=== PATIENT | female | born 1975 | race American Indian/Alaskan Native ===

== ENCOUNTER 2016-05-14 07:39 | Emergency (ER) | payer BC, OTHER ==
[2016-05-14 07:39] VITALS: BMI 27.4
[2016-05-14 07:56] VITALS: TEMP 97.4
--- NOTE | 2016-05-14 07:59 | ED PDOC ---
Arrival/HPI - General Time Seen by Provider: 05/14/16 07:45 Historian: Patient - History of Present Illness Narrative History of Present Illness (Text): 05/14/16 07:45 Kacie Palma is a 41 year old female, whose past medical history includes chest pain, who presents to the Emergency department complaining of difficulty breathing with associated right-sided chest and back pain for four days. Patient states that feels like she "can't catch her breath." Patient says she went to an Urgent Care facility two days ago but her symptoms are still constant. Patient denies any colds, cough, fevers, nausea, vomiting, diarrhea, urinary symptoms, or any other complaints at this time. PMD: Dr. Tineo Time/Duration: < week (4 days) Symptom Onset: Gradual Symptom Course: Unchanged Severity Level: Mild Activities at Onset: Light Context: Home Associated Symptoms (Text): 05/14/16 08:46 Several day history of chest pain and shortness of breath. Patient has had similar episodes in the past. Multiple CT scans of the chest. She's had a biopsy also. She reports that her high school band director was entertaining the diagnosis of sarcoidosis, but she was never given that diagnosis. No cough congestion or URI. No fever or chills. No injury or trauma. The pain is made worse by breathing and palpation. She reports that steroids have helped the pain in the past. Past Medical History - Provider Review Nursing Documentation Reviewed: Yes - Past History Past History: No Previous - Infectious Disease Hx of Infectious Diseases: None - Tetanus Immunization Tetanus Immunization: Up to Date - Past Medical History Past Medical History: No Previous - Psychiatric Hx Substance Use: No - Past Surgical History Past Surgical History: No Previous - Surgical History Hx Section: Yes - Suicidal Assessment Feels Threatened In Home Enviroment: No Family/Social History - Physician Review Nursing Documentation Reviewed: Yes Family/Social History: No Known Family HX Smoking Status: Never Smoked Hx Alcohol Use: No Hx Substance Use: No Hx Substance Use Treatment: No Allergies/Home Meds Allergies/Adverse Reactions: Allergies iodine Adverse Reaction (Uncoded 05/14/16 07:52) RASH shellfish Adverse Reaction (Uncoded 05/14/16 07:53) RASH Home Medications: Home Meds Medication Instructions Recorded Confirmed B Complex with Vitamin C [Shantal-Bee 500 mg DAILY 05/14/16 05/14/16 with C] Review of Systems - Physician Review All systems were reviewed & negative as marked: Yes - Review of Systems Constitutional: absent: Fevers, Night Sweats Eyes: absent: Vision Changes ENT: absent: Hearing Changes Respiratory: SOB. absent: Cough, Sputum, Wheezing Cardiovascular: Chest Pain. absent: Palpitations, Syncope Gastrointestinal: absent: Abdominal Pain, Constipation, Diarrhea, Nausea, Vomiting Genitourinary Female: absent: Dysuria, Frequency, Hematuria, Urine Output Changes Musculoskeletal: Back Pain. absent: Neck Pain, Joint Swelling Skin: absent: Rash Neurological: absent: Headache, Dizziness Endocrine: absent: Diaphoresis Hemo/Lymphatic: absent: Easy Bleeding Psychiatric: absent: Depression Physical Exam Vital Signs Reviewed: Yes Vital Signs Temp Pulse Pulse Resp BP BP Pulse Ox 05/14/16 08:10 97.4 F L 66 76 18 109/76 109/76 100 05/14/16 07:39 97.4 F L 86 19 109/76 100 Temperature: Afebrile Blood Pressure: Normal Pulse: Regular Respiratory Rate: Normal Appearance: Positive for: Well-Appearing, Non-Toxic, Comfortable Pain Distress: None Mental Status: Positive for: Alert and Oriented X 3 - Systems Exam Head: Present: Atraumatic, Normocephalic Pupils: Present: PERRL Extroacular Muscles: Present: EOMI Conjunctiva: Present: Normal Mouth: Present: Moist Mucous Membranes Pharnyx: No: ERYTHEMA, EXUDATE, TONSILS ENLARGED Neck: Present: Normal Range of Motion Respiratory/Chest: Present: Clear to Auscultation, Good Air Exchange, Respiratory Distress, Accessory Muscle Use, Tender to Palpation, Other (Right- sided chest tenderness). No: Decreased Breath Sounds Cardiovascular: Present: Regular Rate and Rhythm, Normal S1, S2. No: Murmurs Abdomen: Present: Normal Bowel Sounds. No: Tenderness, Distention, Peritoneal Signs, Rebound, Guarding Back: Present: Normal Inspection Upper Extremity: Present: Normal Inspection. No: Cyanosis, Edema Lower Extremity: Present: Normal Inspection. No: Edema Neurological: Present: GCS=15, CN II-XII Intact, Speech Normal, Motor Func Grossly Intact Skin: Present: Warm, Dry, Normal Color. No: Rashes Psychiatric: Present: Alert, Oriented x 3, Normal Insight, Normal Concentration Medical Decision Making ED Course and Treatment: 05/14/16 07:45 Impression: 41 year old female complaining of difficulty breathing with associated right- sided chest and back pain for four days Plan: -- EKG -- Toradol -- Reassess and disposition Progress Notes: 05/14/16 08:48 EKG shows normal sinus rhythm rate approximately 85 with nonspecific T-wave changes laterally with no old EKGs for comparison 05/14/16 09:14 Symptoms improved. - Lab Interpretations Lab Results: 05/14/16 08:13 05/14/16 08:13 Lab Results 05/14/16 08:13: WBC 5.8, RBC 4.58, Hgb 11.4 L, Hct 35.6 L, MCV 77.7 L, MCH 24.9 L, MCHC 32.0, RDW 14.9 H, Plt Count 653 H, MPV 9.4, Gran % 54.2, Lymph % (Auto) 34.7, [place] % (Auto) 7.5 H, Eos % (Auto) 2.4, Baso % (Auto) 1.2, Gran # 3.13, Lymph # 2.0, [place] # 0.4, Eos # 0.1, Baso # 0.07, D-Dimer, Quantitative 0.48, Sodium 141, Potassium 3.8, Chloride 102, Carbon Dioxide 28, Anion Gap 15, BUN 11 , Creatinine 0.9, Est GFR ( Amer) > 60, Est GFR (Non-Af Amer) > 60, Random Glucose 73, Calcium 9.5, Magnesium 2.0, Total Bilirubin 0.5, AST 23, ALT 27, Alkaline Phosphatase 69, Lactate Dehydrogenase 398, Total Creatine Kinase 65 , Troponin I < 0.01, Total Protein 8.6 H, Albumin 4.4, Globulin 4.2, Albumin/ Globulin Ratio 1.0 L, Urine Color Yellow, Urine Appearance Clear, Urine pH 6.0, Ur Specific [place] 1.020, Urine Protein Negative, Urine Glucose (UA) Negative, Urine Ketones Negative, Urine Blood Negative, Urine Nitrate Negative, Urine Bilirubin Negative, Urine Urobilinogen 0.2, Ur Leukocyte Esterase Negative - RAD Interpretation Radiology Orders: 05/14/16 07:53 CHEST PORTABLE [RAD] Stat Chest one view shows no infiltrate or effusion cardiomegaly or pneumothorax Library Science Professor: ED Physician - Medication Orders Current Medication Orders: Discontinued Medications Ketorolac Tromethamine (Toradol) 30 mg IVP ONCE ONE Stop: 05/14/16 07:54 Last Admin: 05/14/16 08:31 Dose: 30 MG IVP Administration Document 05/14/16 08:31 HATTIE (Rec: 05/14/16 08:32 [id number]) Charges for Administration # of IVP Administrations 1 - Scribe Statement The provider has reviewed the documentation as recorded by the Scribe Cathryn Saldivar Provider Scribe Attestation: All medical record entries made by the Scribe were at my direction and personally dictated by me. I have reviewed the chart and agree that the record accurately reflects my personal performance of the history, physical exam, medical decision making, and the department course for this patient. I have also personally directed, reviewed, and agree with the discharge instructions and disposition. Disposition/Present on Arrival - Present on Arrival Any Indicators Present on Arrival: No History of DVT/PE: No History of Uncontrolled Diabetes: No Urinary Catheter: No History of Decub. Ulcer: No History Surgical Site Infection Following: None - Disposition Have Diagnosis and Disposition been Completed?: Yes Diagnosis: Chest wall pain, Pleurisy Disposition: HOME/ ROUTINE Disposition Time: 09:15 Patient Plan: Discharge Condition: IMPROVED Discharge Instructions (ExitCare): Chest Pain (ED) Additional Instructions: Rest. Follow-up with PMD. Follow up in ER as needed. Prescriptions: Naproxen [Naprosyn] 500 mg PO BID #14 tab
[2016-05-14 08:14] LABS: ADD MANUAL DIFF? NO
[2016-05-14 08:16] VITALS: RESP 18
[2016-05-14 08:24] LABS: BASO # 0.07 K/mm3 (0.0-2.0); BASO % 1.2 % (0.0-3.0); EOS # 0.1 (0.0-0.7); EOS % 2.4 % (1.5-5.0); GRAN # 3.13 (1.4-6.5); GRAN % 54.2 % (50.0-68.0); HEMATOCRIT 35.6 % (36.0-48.0); LYMPH % 34.7 % (22.0-35.0); MEAN CELL VOLUME 77.7 fL (80.0-105.0); MEAN CORPUSCULAR HEMOGLOBIN 24.9 pg (25.0-35.0); MEAN PLATELET VOLUME 9.4 fl (7.0-11.0); MONO # 0.4 (0.1-0.6); MONO % 7.5 % (1.0-6.0); PLATELET COUNT 653 10^3/uL (120.0-450.0); RED CELL DISTRIBUTION WIDTH 14.9 % (11.5-14.5); WHITE BLOOD COUNT 5.8 10^3/ul (4.5-11.0)
[2016-05-14 08:30] LABS: ALKALINE PHOSPHATASE 69 U/L (38-133); ALT/SGPT 27 U/L (7-56); AST/SGOT 23 U/L (15-39); BILIRUBIN,TOTAL 0.5 mg/dL (0.2-1.3); BLOOD UREA NITROGEN 11 mg/dL (7-21); CALCIUM 9.5 mg/dL (8.4-10.5); CARBON DIOXIDE 28 mmol/L (21-33); CHLORIDE 102 mmol/L (98-107); GFR AFRICAN-AMERICAN > 60; GLUCOSE,RANDOM 73 mg/dL (70-110); POTASSIUM 3.8 mmol/L (3.6-5.0); SODIUM 141 mmol/L (132-148); TOTAL PROTEIN 8.6 g/dL (5.8-8.3)
[2016-05-14 08:31] LABS: URINE BILIRUBIN NEGATIVE (NEGATIVE); URINE BLOOD NEGATIVE (NEGATIVE); URINE GLUCOSE (UA) NEGATIVE (NEGATIVE); URINE KETONE NEGATIVE (NEGATIVE); URINE LEUKOCYTE ESTERASE NEGATIVE Leu/uL (NEGATIVE); URINE PROTEIN NEGATIVE mg/dL (<30 mg/dL); URINE UROBILINOGEN 0.2 E.U./dL (<1 E.U./dL)
[2016-05-14 08:32] LABS: URINE APPEARANCE CLEAR (CLEAR); URINE COLOR YELLOW (YELLOW)
--- NOTE | 2016-05-14 08:45 | RAD ---
HISTORY: cp COMPARISON: 09/06/2012 FINDINGS: LUNGS: No active pulmonary disease. PLEURA: No significant pleural effusion identified, no pneumothorax apparent. CARDIOVASCULAR: Normal. OSSEOUS STRUCTURES: No significant abnormalities. VISUALIZED UPPER ABDOMEN: Normal. OTHER FINDINGS: None. IMPRESSION: No active disease.
[2016-05-14 08:49] LABS: TROPONIN I < 0.01 ng/mL
[2016-05-14 09:17] VITALS: BP 103/78; PULSE 78; O2SAT 82
--- NOTE | 2016-05-14 14:52 | CARD ---
APPROVED REPORT EKG Measurement Heart [id number] <Conclusion> Normal sinus rhythm T wave abnormality, consider anterior ischemia Abnormal ECG
== END 2016-05-14 09:17 | disposition home or self-care (01) ==
LOC: ED 07:39
DX: R07.89 Other chest pain (principal)
CPT/HCPCS: 71010; 80053; 81003; 82550; 83615; 83735; 84484; 85025; 85378; 93005; 96374; 99283; J1885

== ENCOUNTER 2016-05-20 14:37 | Observation (INO) | payer BC, OTHER ==
[2016-05-20 14:37] VITALS: BMI 27.4
--- NOTE | 2016-05-20 14:41 | ED PDOC ---
Arrival/HPI - General Time Seen by Provider: 05/20/16 14:39 Historian: Patient - History of Present Illness Narrative History of Present Illness (Text): 05/20/16 14:40 41 y/o female, pmh including pneumonia/pneumonitis?, alelrgic to shellfish, c/o rt. sided lateral chest wall pain x 2 weeks. Pt. stated that she has been having rt. lateral chest wall pain for the past 2 weeks, on and off, feels like her previous episode of pneumonia/pneumonitis which was only potato picker by the CT chest and not chest xray. Pt. stated that she has no coughing or fever, does have epigastric pain, no night sweat, no dizziness, no palpitation, no numbness or tingling, non-radiating, saw her own pmd Dr. Johnson on this past monday which she started on the zithromax but has not gotten better. Pt. has no weight loss, no abdominal pain, no other medical or psychological complaints. Past Medical History - Provider Review Nursing Documentation Reviewed: Yes - Past History Past History: No Previous - Infectious Disease Hx of Infectious Diseases: None - Tetanus Immunization Tetanus Immunization: Up to Date - Past Medical History Past Medical History: No Previous - Psychiatric Hx Substance Use: No - Past Surgical History Past Surgical History: No Previous - Surgical History Hx Section: Yes - Anesthesia Hx Anesthesia: Yes Hx Anesthesia Reactions: No Hx Malignant Hyperthermia: No - Suicidal Assessment Feels Threatened In Home Enviroment: No Family/Social History - Physician Review Nursing Documentation Reviewed: Yes Family/Social History: Unknown Family HX Smoking Status: Never Smoked Hx Alcohol Use: No Hx Substance Use: No Hx Substance Use Treatment: No Allergies/Home Meds Allergies/Adverse Reactions: Allergies iodine Adverse Reaction (Uncoded 05/20/16 14:51) RASH shellfish Adverse Reaction (Uncoded 05/20/16 14:51) RASH Home Medications: Home Meds Medication Instructions Recorded Confirmed B Complex with Vitamin C [Shantal-Bee 500 mg DAILY 05/14/16 05/14/16 with C] Review of Systems - Review of Systems Constitutional: absent: Fatigue, Fevers Eyes: absent: Vision Changes ENT: absent: Hearing Changes Respiratory: absent: Cough, Sputum Cardiovascular: absent: Chest Pain, Palpitations, Edema Gastrointestinal: absent: Abdominal Pain, Diarrhea, Nausea, Vomiting Musculoskeletal: Myalgias. absent: Arthralgias, Back Pain, Neck Pain, Joint Swelling Neurological: absent: Headache, Dizziness, Focal Weakness, Gait Changes, Speech Changes, Facial Droop, Disequilibrium, Seizure Endocrine: absent: Diaphoresis Physical Exam Vital Signs Reviewed: Yes Vital Signs Temp Pulse Resp BP Pulse Ox 05/20/16 19:52 97.8 F 79 16 119/76 98 05/20/16 14:50 97.9 F 89 18 126/70 100 Temperature: Afebrile Blood Pressure: Normal Pulse: Regular Respiratory Rate: Normal Appearance: Positive for: Well-Appearing, Non-Toxic, Comfortable Pain Distress: Moderate Mental Status: Positive for: Alert and Oriented X 3 - Systems Exam Head: Present: Atraumatic, Normocephalic Pupils: Present: PERRL Extroacular Muscles: Present: EOMI Conjunctiva: Present: Normal Mouth: Present: Moist Mucous Membranes Neck: Present: Normal Range of Motion Respiratory/Chest: Present: Clear to Auscultation, Good Air Exchange, Rales (RLL ), Rhonchi (RLL). No: Respiratory Distress, Accessory Muscle Use, Wheezes, Decreased Breath Sounds, Retracting, Tachypneic Cardiovascular: Present: Regular Rate and Rhythm, Normal S1, S2. No: Murmurs Abdomen: Present: Tenderness (mild epigastric tenderness), Normal Bowel Sounds. No: Distention, Peritoneal Signs, Rebound, Guarding Back: Present: Normal Inspection. No: CVA Tenderness, Midline Tenderness, Paraspinal Tenderness, Pain with Leg Raise Upper Extremity: Present: Normal Inspection. No: Cyanosis, Edema Lower Extremity: Present: Normal Inspection. No: Edema Neurological: Present: GCS=15, CN II-XII Intact, Speech Normal Skin: Present: Warm, Dry, Normal Color. No: Rashes Psychiatric: Present: Alert, Oriented x 3, Normal Insight, Normal Concentration Medical Decision Making ED Course and Treatment: 05/20/16 15:06 -labs/ua -gallbladder sonogram -EKG -CT Chest -child monitor -Observe and reassess 05/20/16 18:06 -EKG: NSR @ 88 BPM, no St elevation or depression, no T wave inversion, compared with previous ekg. -Labs are non-significant except hgb 9.4 which she has no GI symptoms. -Gallbladder sonogram show: echogenic liver with fatty infiltration which I explained to the patient that she needs to follow up plus no alcohol drinks. -CT show: rt. lung base with focal masslike consolidation along with multiple focal nodules including the lt. breast 6mm nodules which I explained the entire report with the patient. The differential can be including infectious vs. inflammatory vs. cancerous. Clinically the presentation appear as pneumonia like [address] Reece doesn't suspect PE or septic emboli at this time. -I discussed the case with the ER attending Dr. Reece which he agreed that this needs to be treated as pneumonia, IV rocephine and zithromycin ordered. -I will admit the patient. 05/20/16 18:49 -I spoke to Dr. Analia Ryan over the phone, discussed about the labs/ radiology results which he stated that this is similiar episodes as 2012 which the patient responded well to the solumedrol and IV antibiotic. Dr. Helms stated that he doesn't come to this hospital anymore and call the service amphibious operations officer. 05/20/16 19:12 -I spoke to Dr. Taylor about the case which he is covering for Dr. Rivera, he say to admit to Dr. Rivera and will follow up the case plus call his resident as well. 05/20/16 19:16 -I spoke to Dr. Taylor/Nicole's resident (Dr. America Eduardo), which she will evaluate and admit the patient. - Lab Interpretations Lab Results: 05/20/16 16:10 05/20/16 16:10 Lab Results 05/20/16 16:10: WBC 7.2 D, RBC 3.87, Hgb 9.4 L, Hct 29.7 L, MCV 76.7 L, MCH 24.3 L, MCHC 31.6, RDW 14.8 H, Plt Count 489 H, MPV 9.3, Gran % 47.4 L, Lymph % (Auto) 40.6 H, [place] % (Auto) 8.0 H, Eos % (Auto) 3.2, Baso % (Auto) 0.8, Gran # 3.41, Lymph # 2.9, [place] # 0.6, Eos # 0.2, Baso # 0.06, Sodium 137, Potassium 4.0 , Chloride 100, Carbon Dioxide 29, Anion Gap 12, BUN 14, Creatinine 0.7, Est GFR ( Amer) > 60, Est GFR (Non-Af Amer) > 60, Random Glucose 75, Calcium 9.3, Iron 12 L, TIBC 347, % Saturation 4 L, Ferritin 6.3, Total Bilirubin 0.2, AST 26, ALT 23, Alkaline Phosphatase 64, Lactate Dehydrogenase 333, Total Creatine Kinase 63, Troponin I < 0.01, NT-Pro-B Natriuret Pep 72.0, Total Protein 7.1, Albumin 3.6, Globulin 3.5, Albumin/Globulin Ratio 1.0 L, Lipase 73 05/20/16 15:13: Urine Color Yellow, Urine Appearance Clear, Urine pH 6.5, Ur Specific [place] 1.025, Urine Protein Negative, Urine Glucose (UA) Negative, Urine Ketones Negative, Urine Blood Negative, Urine Nitrate Negative, Urine Bilirubin Negative, Urine Urobilinogen 0.2, Ur Leukocyte Esterase Negative, Urine HCG, Qual Negative I have reviewed the lab results: Yes Interpretation: Abnormal lab values (hgb 9.4) - RAD Interpretation Radiology Orders: 05/20/16 15:00 GALL BLADDER [US] Stat 05/20/16 15:37 CHEST W/O CONTRAST [CT] Stat Gallbladder sonogram: HISTORY: epigastric pain/ruq pain COMPARISON: None available TECHNIQUE: Sonographic evaluation of the right upper quadrant of the abdomen. FINDINGS: LIVER: Measures 15.7 x 10.5 x 17.8 cm. Echogenic liver may be seen in setting of hepatic parenchymal disease or fatty infiltration. No focal hepatic mass identified. The main portal vein appears patent with normal directional flow. No intrahepatic bile duct dilatation. GALLBLADDER: No gallstones. No gallbladder wall thickening or pericholecystic edema. Negative sonographic Austin's sign as assessed by the hcc coders. COMMON BILE DUCT: Measures 3 mm. PANCREAS: Not well-visualized. RIGHT KIDNEY: Measures 8.9 x 3.3 x 4.6 cm. No obstructing calculus or hydronephrosis identified. AORTA: Limited visualization appears unremarkable. IVC: Limited visualization appears unremarkable. OTHER FINDINGS: None . IMPRESSION: Echogenic liver may be seen in setting of hepatic parenchymal disease or fatty infiltration. CT Chest: Stevedoring Supervisor: Radiologist - EKG Interpretation EKG Interpretation (Text): 05/20/16 15:06 EKG: NSR @ 88 BPM, no St elevation or depression, no T wave inversion, compared with previous ekg. Interpreted by ED Physician: Yes Type: 12 lead EKG Comparison: Com.w/previous EKG - Medication Orders Current Medication Orders: Discontinued Medications Famotidine (Pepcid) 20 mg IVP STAT STA Stop: 05/20/16 15:01 Last Admin: 05/20/16 15:55 Dose: 20 MG IVP Administration Document 05/20/16 15:55 [facility] (Rec: 05/20/16 16:20 [facility] [id number]) Charges for Administration # of IVP Administrations 1 Sodium Chloride (Sodium Chloride 0.9%) 1,000 mls @ 100 mls/hr IV .Q10H MEGAN Last Admin: 05/21/16 02:30 Dose: 100 MLS/HR eMAR Start Stop Document 05/21/16 02:30 SD (Rec: 05/21/16 04:00 SD [id number]) Intravenous Solution Start Date 05/21/16 Start Time 02:30 Azithromycin (Zithromax 500mg In Ns) 250 mls @ 167 mls/hr IVPB STAT STA PRN Reason: Protocol Stop: 05/20/16 19:13 Last Admin: 05/20/16 20:29 Dose: 167 MLS/HR eMAR Start Stop Document 05/20/16 20:29 SD (Rec: 05/20/16 20:30 SD [id number]) Intravenous Solution Start Date 05/20/16 Start Time 20:30 Ceftriaxone Sodium (Rocephin 1 Gram Ivpb) 100 mls @ 200 mls/hr IVPB STAT STA PRN Reason: Protocol Stop: 05/20/16 18:13 Last Admin: 05/20/16 19:42 Dose: 200 MLS/HR eMAR Start Stop Document 05/20/16 19:42 [facility] (Rec: 05/20/16 19:42 [email or web address] Intravenous Solution Start Date 05/20/16 Start Time 19:42 End Date 05/20/16 End time 20:12 Total Infusion Time 30 Levofloxacin/Dextrose (Levaquin 500mg) 100 mls @ 100 mls/hr IVPB DAILY MEGAN Last Admin: 05/21/16 09:40 Dose: 100 MLS/HR eMAR Start Stop Document 05/21/16 09:40 ML (Rec: 05/21/16 09:40 ML [id number]) Intravenous Solution Start Date 05/21/16 Start Time 09:40 End Date 05/21/16 End time 10:10 Total Infusion Time 30 Ibuprofen (Motrin Tab) 600 mg PO Q6H PRN PRN Reason: Pain, moderate (4-7) Ketorolac Tromethamine (Toradol) 30 mg IVP STAT STA Stop: 05/20/16 15:01 Last Admin: 05/20/16 15:55 Dose: 30 MG IVP Administration Document 05/20/16 15:55 [facility] (Rec: 05/20/16 16:20 [place] [id number]) Charges for Administration # of IVP Administrations 1 Methylprednisolone (Solu-Medrol) 125 mg IVP STAT STA Stop: 05/20/16 18:49 Last Admin: 05/20/16 19:42 Dose: 125 MG IVP Administration Document 05/20/16 19:42 [facility] (Rec: 05/20/16 19:42 [email or web address]) Charges for Administration # of IVP Administrations 1 Morphine Sulfate (Morphine) 2 mg IVP Q4H PRN PRN Reason: Pain, severe (8-10) Pantoprazole Sodium (Protonix Ec Tab) 40 mg PO ACB [facility] Last Admin: 05/21/16 09:42 Dose: 40 MG Prednisone (Prednisone Tab) 20 mg PO DAILY [facility] Last Admin: 05/21/16 09:40 Dose: 20 MG - PA / ADMINISTRATIVE PROCESSOR / Resident Statement MD/DO has reviewed & agrees with the documentation as recorded. Disposition/Present on Arrival - Present on Arrival Any Indicators Present on Arrival: No History of DVT/PE: No History of Uncontrolled Diabetes: No Urinary Catheter: No History of Decub. Ulcer: No History Surgical Site Infection Following: None - Disposition Have Diagnosis and Disposition been Completed?: Yes Diagnosis: Lung consolidation, Abnormal chest CT Disposition: HOSPITALIZED Disposition Time: 18:51 Patient Plan: Admission Condition: STABLE
[2016-05-20 15:34] LABS: PH,URINE 6.5 (4.7-8.0); URINE BILIRUBIN NEGATIVE (NEGATIVE); URINE BLOOD NEGATIVE (NEGATIVE); URINE GLUCOSE (UA) NEGATIVE (NEGATIVE); URINE KETONE NEGATIVE (NEGATIVE); URINE LEUKOCYTE ESTERASE NEGATIVE Leu/uL (NEGATIVE); URINE PROTEIN NEGATIVE mg/dL (<30 mg/dL); URINE UROBILINOGEN 0.2 E.U./dL (<1 E.U./dL)
[2016-05-20 15:35] LABS: URINE APPEARANCE CLEAR (CLEAR); URINE COLOR YELLOW (YELLOW)
[2016-05-20] MEDS: Sodium Chloride 0.9% 1,000 ML IV SCH (16:22)
[2016-05-20 16:24] LABS: ADD MANUAL DIFF? NO
[2016-05-20 16:31] LABS: BASO # 0.06 K/mm3 (0.0-2.0); BASO % 0.8 % (0.0-3.0); EOS # 0.2 (0.0-0.7); EOS % 3.2 % (1.5-5.0); GRAN # 3.41 (1.4-6.5); GRAN % 47.4 % (50.0-68.0); HEMATOCRIT 29.7 % (36.0-48.0); LYMPH # 2.9 (1.2-3.4); LYMPH % 40.6 % (22.0-35.0); MEAN CELL VOLUME 76.7 fL (80.0-105.0); MEAN CORPUSCULAR HEMOGLOBIN 24.3 pg (25.0-35.0); MEAN CORPUSCULAR HGB CONC 31.6 g/dl (31.0-37.0); MEAN PLATELET VOLUME 9.3 fl (7.0-11.0); MONO # 0.6 (0.1-0.6); PLATELET COUNT 489 10^3/uL (120.0-450.0); RED CELL DISTRIBUTION WIDTH 14.8 % (11.5-14.5); WHITE BLOOD COUNT 7.2 10^3/ul (4.5-11.0)
[2016-05-20 16:40] LABS: ALKALINE PHOSPHATASE 64 U/L (38-133); ALT/SGPT 23 U/L (7-56); AST/SGOT 26 U/L (15-39); BILIRUBIN,TOTAL 0.2 mg/dL (0.2-1.3); BLOOD UREA NITROGEN 14 mg/dL (7-21); CALCIUM 9.3 mg/dL (8.4-10.5); CARBON DIOXIDE 29 mmol/L (21-33); CHLORIDE 100 mmol/L (98-107); GFR AFRICAN-AMERICAN > 60; GLUCOSE,RANDOM 75 mg/dL (70-110); LIPASE 73 U/L (23-300); SODIUM 137 mmol/L (132-148); TOTAL PROTEIN 7.1 g/dL (5.8-8.3)
[2016-05-20 16:52] LABS: TROPONIN I < 0.01 ng/mL
--- NOTE | 2016-05-20 17:07 | US ---
HISTORY: epigastric pain/ruq pain COMPARISON: None available TECHNIQUE: Sonographic evaluation of the right upper quadrant of the abdomen. FINDINGS: LIVER: Measures 15.7 x 10.5 x 17.8 cm. Echogenic liver may be seen in setting of hepatic parenchymal disease or fatty infiltration. No focal hepatic mass identified. The main portal vein appears patent with normal directional flow. No intrahepatic bile duct dilatation. GALLBLADDER: No gallstones. No gallbladder wall thickening or pericholecystic edema. Negative sonographic Austin's sign as assessed by the screen printing machine operator. COMMON BILE DUCT: Measures 3 mm. PANCREAS: Not well-visualized. RIGHT KIDNEY: Measures 8.9 x 3.3 x 4.6 cm. No obstructing calculus or hydronephrosis identified. AORTA: Limited visualization appears unremarkable. IVC: Limited visualization appears unremarkable. OTHER FINDINGS: None . IMPRESSION: Echogenic liver may be seen in setting of hepatic parenchymal disease or fatty infiltration.
--- NOTE | 2016-05-20 17:31 | CT ---
CT chest without IV contrast Indication: possible multifocal pneumonia ? Technique: Contiguous axial images were obtained through the chest without intravenous contrast enhancement. Sagittal and coronal reconstructions were generated and reviewed. This CT exam was performed using 1 or more of the falling dose reduction techniques: Automated exposure control, adjustment of the MAA and/or kV according to patient size, and/or use of iterative reconstruction technique. Radiation dose (DLP): 227.59 MGy-cm. Comparison: Chest x-ray performed 05/14/16, CTA chest performed 08/26/12 Findings: Visualized portions of the inferior thyroid gland appear unremarkable. The unenhanced mediastinal and hilar vascular structures appear grossly unremarkable. The heart appears within normal limits of size. Focal masslike consolidation at the right lung base. Multiple additional nodular densities within bilateral lung [place], largest in the left lower lobe measuring approximately 1.4 cm (series 4, image 72) and 0.9 cm (series 4, image 69). Several of these nodular densities demonstrate hazy ground-glass peripheral opacities. Finding suspected to reflect multifocal pneumonia, less likely septic emboli as there is no evidence of cavitation. Short-term follow-up upon completion of treatment for acute symptoms is required as metastatic disease cannot be excluded. No pleural effusion. No pneumothorax. 6 mm nodular density at the left breast (image 71). Small hiatal hernia/distal esophageal wall thickening. Limited visualization of the noncontrast upper abdomen appears grossly unremarkable. Mild degenerative changes. Impression: Focal masslike consolidation at the right lung base. Multiple additional nodular densities within bilateral lung [place], largest within the left lower lobe, indeterminate. Infectious or inflammatory etiologies such as multifocal pneumonia or less likely septic emboli (as there is no evidence of cavitation) suspected. Short-term follow-up upon completion of treatment for acute symptoms is required as metastatic disease must be excluded. 6 mm nodular density at the left breast. Recommend correlation with dedicated cross-sectional imaging. Small hiatal hernia/distal esophageal wall thickening. Findings discussed with DELMIS Pino on 05/20/16 at 532 pm.
[2016-05-20] MEDS ORDERED: cefTRIAXone 1 gm 100 ML IVPB STA (17:44)
[2016-05-20] MEDS ORDERED: Azithromycin 500MG/NS 250ml 250 ML IVPB STA (17:44)
[2016-05-20] MEDS ORDERED: Morphine 4 mg/ml ISec IVP PRN (19:41)
--- NOTE | 2016-05-20 19:48 | CP.PCM.HP ---
<America Treadwell - Last Filed: 05/20/16 20:03> History of Present Illness - History of Present Illness History of Present Illness: This is a 41Y F with PMH of lung nodules came in for back pain and R sided pain x 1 week. She reports that the pain is located on her R side and is worse with lying on that side. The pain is constant. This has happened before 4 years ago. She had abnormal lung nodules seen on CT. She had a lung biopsy which was showed fibrosis, probable granuloma. She was also treated with antibiotics and antifungals. She also received prednisone, which she says help relieve her pain. She has not a flare up until now. She called her PMD, Dr. Johnson who gave her Zithromax and she completed 3 out of the 5 days. She denies having CP, cough, fever, chills, sick contacts, SOB, n/v/d. PMH: lung nodules PSH: Albin gao 03/2016, lung biopsy 2012 Home meds: Multivitamin All: Shellfish- angioedema SH: Denies EtOH, drug or tobacco use. Live with her 2 daughters FH: Mom- DM, Dad- of cancer of spine PMD: Dr. Johnson Present on Admission - Present on Admission Any Indicators Present on Admission: No Review of Systems - Review of Systems Review of Systems: As per HPI Past Patient History - Infectious Disease Hx of Infectious Diseases: None - Tetanus Immunizations Tetanus Immunization: Up to Date - Past Social History Smoking Status: Never Smoked - PULMONARY Hx Pneumonia: Yes - PSYCHIATRIC Hx Substance Use: No - SURGICAL HISTORY Hx Section: Yes - ANESTHESIA Hx Anesthesia: Yes Hx Anesthesia Reactions: No Hx Malignant Hyperthermia: No Meds Allergies/Adverse Reactions: Allergies Allergy/AdvReac Type Severity Reaction Status Date / Time iodine AdvReac RASH Uncoded 05/20/16 14:51 shellfish AdvReac RASH Uncoded 05/20/16 14:51 Physical Exam - Constitutional Appears: No Acute Distress - Head Exam Head Exam: ATRAUMATIC, NORMAL INSPECTION, NORMOCEPHALIC - Eye Exam Eye Exam: Normal appearance, PERRL Pupil Exam: NORMAL ACCOMODATION, PERRL - ENT Exam ENT Exam: Mucous Membranes Moist - Neck Exam Neck exam: Positive for: Normal Inspection - Respiratory Exam Respiratory Exam: Clear to Auscultation Bilateral, NORMAL BREATHING PATTERN. absent: Rales, Rhonchi, Stridor Additional comments: Tenderness on R side near ribs 6-8 - Cardiovascular Exam Cardiovascular Exam: REGULAR RHYTHM, +S1, +S2. absent: Gallop, Rubs, Systolic Murmur - GI/Abdominal Exam GI & Abdominal Exam: Normal Bowel Sounds, Soft, Tenderness (mild tenderness at surgical incision site of tummy tuck ). absent: Mass, Rebound, Rigid - Neurological Exam Neurological exam: Alert, CN II-XII Intact, Oriented x3 - Psychiatric Exam Psychiatric exam: Normal Affect, Normal Mood - Skin Skin Exam: Dry, Intact, Normal Color, Warm Results - Vital Signs Recent Vital Signs: Last Vital Signs Temp 97.9 F 05/20/16 14:50 Pulse 89 05/20/16 14:50 Resp 18 05/20/16 14:50 BP 126/70 05/20/16 14:50 Pulse Ox 100 05/20/16 14:50 - Labs Result Diagrams: 05/20/16 16:10 05/20/16 16:10 Labs: Laboratory Results - last 24 hr 05/20/16 05/20/16 15:13 16:10 WBC 7.2 D RBC 3.87 Hgb 9.4 L Hct 29.7 L MCV 76.7 L MCH 24.3 L MCHC 31.6 RDW 14.8 H Plt Count 489 H MPV 9.3 Gran % 47.4 L Lymph % (Auto) 40.6 H [place] % (Auto) 8.0 H Eos % (Auto) 3.2 Baso % (Auto) 0.8 Gran # 3.41 Lymph # 2.9 [place] # 0.6 Eos # 0.2 Baso # 0.06 Sodium 137 Potassium 4.0 Chloride 100 Carbon Dioxide 29 Anion Gap 12 BUN 14 Creatinine 0.7 Est GFR ( Amer) > 60 Est GFR (Non-Af Amer) > 60 Random Glucose 75 Calcium 9.3 Total Bilirubin 0.2 AST 26 ALT 23 Alkaline Phosphatase 64 Lactate Dehydrogenase 333 Total Creatine Kinase 64 Troponin I < 0.01 NT-Pro-B Natriuret Pep 72.0 Total Protein 7.1 Albumin 3.6 Globulin 3.5 Albumin/Globulin Ratio 1.0 L Lipase 73 Urine Color Yellow Urine Appearance Clear Urine pH 6.5 Ur Specific [place] 1.025 Urine Protein Negative Urine Glucose (UA) Negative Urine Ketones Negative Urine Blood Negative Urine Nitrate Negative Urine Bilirubin Negative Urine Urobilinogen 0.2 Ur Leukocyte Esterase Negative Urine HCG, Qual Negative Assessment & Plan - Assessment and Plan (Free Text) Assessment: This is a 41Y F with PMH of lung nodules admitted for back pain and abnormal lung CT scan. Plan: 1. Pleuritic pain - CT showed focal mass-like consolidation on R lung base with multiple nodular densities in bilateral lung churchill (largest in LL lobe) - Gallbladder U/S- echogenic liver- could correlate with fatty liver disease - Consult Pulm - Levaquin - Prednisone 20mg PO - Reg diet - Ibuprofen prn mod pain, Morphine prn severe pain 2. Anemia - will check iron studies - Continue to monitor CBC GI ppx: Protonix DVT ppx: SCDs Case seen, reviewed and discussed with Dr. Brandon Treadwell PGY1 - Date & Time Date: 05/20/16 Time: 20:00 <Salvador Taylor - Last Filed: 06/10/16 09:34> Results - Vital Signs Recent Vital Signs: Last Vital Signs Temp 99.7 F H 05/21/16 06:00 Pulse 63 05/21/16 06:00 Resp 18 05/21/16 06:00 BP 103/62 05/21/16 06:00 Pulse Ox 98 05/21/16 06:00 - Labs Result Diagrams: 05/21/16 09:38 05/21/16 09:38 Attending/Attestation - Attestation I have personally seen and examined this patient.: Yes I have fully participated in the care of the patient.: Yes I have reviewed all pertinent clinical information: Yes Notes (Text): 06/10/16 09:34 Medical record note made by the resident after discussion with my direction and input after the patient was personally seen and examined by me. I have reviewed the chart and agree that the record accurately reflects by personal performance of the history, physical exam, data review, and medical decision-making, in the course for the patient. I have also personally directed the plan of care.
[2016-05-20 19:53] VITALS: O2SAT 98
[2016-05-20 21:36] LABS: IRON 12 ug/dL (45-180)
[2016-05-21] MEDS: Sodium Chloride 0.9% 1,000 ML IV SCH (02:30)
[2016-05-21] MEDS ORDERED: Pantoprazole 40 mg EC Tab PO SCH (07:30)
[2016-05-21 09:11] VITALS: BP 103/62; PULSE 63; RESP 18; TEMP 99.7
[2016-05-21 09:39] LABS: ADD MANUAL DIFF? NO
--- NOTE | 2016-05-21 09:58 | CP.PCM.PN ---
Subjective - Date & Time of Evaluation Date of Evaluation: 05/21/16 Time of Evaluation: 09:53 - Subjective Subjective: Medicine progress note - Salvadorharjeet Miller PGY1 Patient seen and examined at bedside this morning. No acute overnight events or new complaints reported. Patient states that she feels improvement of her right- sided chest pain. Discussed at length the workup patient has had in the past for her lung nodules as well as our current findings. Awaiting pulmonology input. Denies chest pain, palpitations, SOB this mornign. Objective - Vital Signs/Intake and Output Vital Signs (last 24 hours): Temp Pulse Resp BP Pulse Ox 99.7 F H 63 18 103/62 98 05/21/16 06:00 05/21/16 06:00 05/21/16 06:00 05/21/16 06:00 05/21/16 06:00 Intake and Output: 05/21/16 05/21/16 06:59 18:59 Intake Total 120 Balance 120 - Medications Medications: Current Medications Sodium Chloride (Sodium Chloride 0.9%) 1,000 mls @ 100 mls/hr IV .Q10H [facility] Last Admin: 05/21/16 02:30 Dose: 100 mls/hr Levofloxacin/Dextrose (Levaquin 500mg) 100 mls @ 100 mls/hr IVPB DAILY [facility] Last Admin: 05/21/16 09:40 Dose: 100 mls/hr Ibuprofen (Motrin Tab) 600 mg PO Q6H PRN PRN Reason: Pain, moderate (4-7) Morphine Sulfate (Morphine) 2 mg IVP Q4H PRN PRN Reason: Pain, severe (8-10) Pantoprazole Sodium (Protonix Ec Tab) 40 mg PO ACB [facility] Last Admin: 05/21/16 09:42 Dose: 40 mg Prednisone (Prednisone Tab) 20 mg PO DAILY [facility] Last Admin: 05/21/16 09:40 Dose: 20 mg - Constitutional Appears: Well, Non-toxic, No Acute Distress - Head Exam Head Exam: ATRAUMATIC, NORMAL INSPECTION, NORMOCEPHALIC - Eye Exam Eye Exam: EOMI, PERRL - ENT Exam ENT Exam: Mucous Membranes Moist - Neck Exam Neck Exam: Normal Inspection - Respiratory Exam Respiratory Exam: Clear to Ausculation Bilateral. absent: Rales, Rhonchi, Wheezes - Cardiovascular Exam Cardiovascular Exam: RRR, +S1, +S2. absent: Clicks, Diastolic murmur, Gallop, JVD, Rubs, Murmur - GI/Abdominal Exam GI & Abdominal Exam: Soft, Normal Bowel Sounds. absent: Distended, Firm, Guarding, Rigid, Tenderness, Rebound - Neurological Exam Neurological Exam: Alert, Awake, CN II-XII Intact, Oriented x3 - Psychiatric Exam Psychiatric exam: Normal Affect, Normal Mood - Skin Skin Exam: Dry, Intact, Normal Color, Warm Assessment and Plan - Assessment and Plan (Free Text) Assessment: 41yo female with history of lung nodules that are s/p biopsy back in 2012 presents c/o right-sided pleuritic chest pain for past 1 week Plan: 1. Right-sided pleuritic pain/ -CT Chest reviewed; revealed focal mass-like consolidation on R lung base with multiple nodular densities in bilateral lung churchill (largest in LL lobe) -Gallbladder U/S- echogenic liver- could correlate with fatty liver disease -Patient started on levaquin and prednisone 20mg PO qd -Lung biopsies from 2013 reviewed; no evidence of malignancy, TB, PCP or fungal infections; showed necrotic granulomatous tissue -Pulmonology consulted - Dr. Pizarro 2. Anemia -Pending workup: Iron, Ferritin, TIBC, %sat, b12, folate -Will follow up 3. Prophylaxis -protonix/SCD's Patient seen and case discussed with attending, Dr. Taylor
[2016-05-21 10:21] LABS: GRAN % 87.1 % (50.0-68.0); HEMATOCRIT 29.8 % (36.0-48.0); LYMPH % 11.5 % (22.0-35.0); MEAN CELL VOLUME 76.2 fL (80.0-105.0); MEAN CORPUSCULAR HGB CONC 31.5 g/dl (31.0-37.0); MEAN PLATELET VOLUME 8.7 fl (7.0-11.0); MONO # 0.1 (0.1-0.6); MONO % 1.4 % (1.0-6.0); PLATELET COUNT 455 10^3/uL (120.0-450.0); RED CELL DISTRIBUTION WIDTH 14.7 % (11.5-14.5); WHITE BLOOD COUNT 8.6 10^3/ul (4.5-11.0)
[2016-05-21 10:35] LABS: ALKALINE PHOSPHATASE 52 U/L (38-133); ALT/SGPT 28 U/L (7-56); AST/SGOT 20 U/L (15-39); BILIRUBIN,TOTAL 0.2 mg/dL (0.2-1.3); BLOOD UREA NITROGEN 9 mg/dL (7-21); CALCIUM 8.8 mg/dL (8.4-10.5); CARBON DIOXIDE 25 mmol/L (21-33); CHLORIDE 107 mmol/L (98-107); GFR AFRICAN-AMERICAN > 60; GLUCOSE,RANDOM 135 mg/dL (70-110); POTASSIUM 3.7 mmol/L (3.6-5.0); SODIUM 142 mmol/L (132-148); TOTAL PROTEIN 6.8 g/dL (5.8-8.3)
--- NOTE | 2016-05-21 11:22 | CARD ---
APPROVED REPORT EKG Measurement Heart [id number] <Conclusion> Normal sinus rhythm NSSTW changes No change
--- NOTE | 2016-05-21 12:42 | CON ---
DATE: 05/21/2016 HISTORY OF PRESENT ILLNESS: This erwin 41-year-old woman was admitted to the hospital yesterday with back and right-sided pleuritic pain. She reports that this happened approximately 10 years ago. She was told at that time that she had no significant reason for having these abnormalities. Interim x-rays are not available. She had nodules in the CAT scan as long as 4 years ago. She had a lung biopsy which showed fibrosis, questionable granuloma. Etiology of this remains unclear. She spoke to her primary medical doctor who gave her Zithromax to no avail. She came to the Emergency Room with the pain, but no shortness of breath, fever, chills or other abnormalities. She denies wheezing. She denies shortness of breath or smoking. PAST MEDICAL HISTORY: The lung nodules as described above. Lung biopsy was done in 2012. HOME MEDICATIONS: She takes none except multivitamins. ALLERGIES: SHE IS ALLERGIC TO IODINE AND SHELLFISH CAUSING ANGIOEDEMA. SOCIAL HISTORY: Denies alcohol use. Denies smoking. Has 2 daughters. FAMILY HISTORY: Cancer of the spine and diabetes mellitus. REVIEW OF SYSTEMS: Has been reviewed completely and was found to be negative. Past medical history as described above. No rheumatologic involvement noted. PHYSICAL EXAMINATION: GENERAL: The patient is in no acute distress. VITAL SIGNS: Stable. Blood pressure 126/70, heart rate 70, respiratory rate 16 , pulse ox 98%. HEENT: Negative. NECK: Supple, no JVD. CHEST: Good air movement. Lungs are clear to percussion and auscultation. CARDIOVASCULAR: Regular rhythm, S1, S2 without murmur, gallop or rub. ABDOMEN: Soft. Bowel sounds normoactive without mass, guarding, rebound or organomegaly. Status post tummy tuck. NEUROLOGIC: No focal findings. Motor, sensory and coordination are normal. Deep tendon reflexes normal. Babinski downgoing. PSYCHIATRIC: Negative. SKIN: No rash or excoriation. LABORATORY STUDIES: White count is 7200, hemoglobin of 9.4, hematocrit 29.7, platelet count 489,000. Electrolytes normal with a sodium of 137, potassium 4.0 , chloride 100, BUN 14, creatinine 0.7. Liver functions are normal. BNP 72. Protein is 7.1. ASSESSMENT: 1. Bilateral lung nodules. 2. Back pain. 3. Rib pain. 4. Abnormal CT of the chest, etiology unclear. 5. Anemia. Clinical impression is that the patient has multiple nodules which have not caused significant discomfort for the last several years. Etiology of this needs to be evaluated. Fibrosis with possible granulomatous disease. Was the patient ever worked up for sarcoidosis? AVIS will be ordered. Gallium scan will be done as an outpatient. PET scan may be necessary if sarcoid excluded. Will need a sed rate as none has been done to this point in time. We will follow closely and decide on the need for further intervention based on our clinical findings and further workup.She definitelyb requires a [facility] [place] [facility] Have discussed at length with Dr. Taylor and will follow as an outpatient. Everardo Armijo MD cc: [phone] TT: 05/21/2016 12:41:38 Confirmation # [id number] Dictation # [id number] tn MTDD
--- NOTE | 2016-05-21 12:58 | CP.PCM.DIS ---
<Salvador Miller - Last Filed: 05/24/16 17:46> Provider - Provider Date of Admission: 05/20/16 19:14 Attending physician: Rei Rivera MD Primary care physician: Shelby Johnson MD Consults: Pulmonology - Dr. Armijo Time Spent in preparation of Discharge (in minutes): 30 Hospital Course - Lab Results Lab Results: Most Recent Lab Values WBC 8.6 10^3/ul (4.5-11.0) 05/21/16 09:38 RBC 3.91 10^6/uL (3.5-6.1) 05/21/16 09:38 Hgb 9.4 gm/dL (12.0-16.0) L 05/21/16 09:38 Hct 29.8 % (36.0-48.0) L 05/21/16 09:38 MCV 76.2 fL (80.0-105.0) L 05/21/16 09:38 MCH 24.0 pg (25.0-35.0) L 05/21/16 09:38 MCHC 31.5 g/dl (31.0-37.0) 05/21/16 09:38 RDW 14.7 % (11.5-14.5) H 05/21/16 09:38 Plt Count 455 10^3/uL (120.0-450.0) H 05/21/16 09:38 MPV 8.7 fl (7.0-11.0) 05/21/16 09:38 Gran % 87.1 % (50.0-68.0) H 05/21/16 09:38 Lymph % (Auto) 11.5 % (22.0-35.0) L 05/21/16 09:38 [place] % (Auto) 1.4 % (1.0-6.0) 05/21/16 09:38 Eos % (Auto) 0.0 % (1.5-5.0) L 05/21/16 09:38 Baso % (Auto) 0.0 % (0.0-3.0) 05/21/16 09:38 Gran # 7.50 (1.4-6.5) H 05/21/16 09:38 Lymph # 1.0 (1.2-3.4) L 05/21/16 09:38 [place]yman # 0.1 (0.1-0.6) 05/21/16 09:38 Eos # 0.0 (0.0-0.7) 05/21/16 09:38 Baso # 0.00 K/mm3 (0.0-2.0) 05/21/16 09:38 ESR 26 mm/hr (0.0-20.0) H 05/21/16 10:00 Sodium 142 mmol/L (132-148) 05/21/16 09:38 Potassium 3.7 mmol/L (3.6-5.0) 05/21/16 09:38 Chloride 107 mmol/L (98-107) 05/21/16 09:38 Carbon Dioxide 25 mmol/L (21-33) 05/21/16 09:38 Anion Gap 14 (10-20) 05/21/16 09:38 BUN 9 mg/dL (7-21) 05/21/16 09:38 Creatinine 0.7 mg/dL (0.5-1.4) 05/21/16 09:38 Est GFR ( Amer) > 60 05/21/16 09:38 Est GFR (Non-Af Amer) > 60 05/21/16 09:38 Random Glucose 135 mg/dL (70-110) H 05/21/16 09:38 Calcium 8.8 mg/dL (8.4-10.5) 05/21/16 09:38 Iron 12 ug/dL (45-180) L 05/20/16 16:10 TIBC 347 ug/dL (265-497) 05/20/16 16:10 % Saturation 4 % (20-55) L 05/20/16 16:10 Ferritin 6.3 ng/mL 05/20/16 16:10 Total Bilirubin 0.2 mg/dL (0.2-1.3) 05/21/16 09:38 AST 20 U/L (15-39) 05/21/16 09:38 ALT 28 U/L (7-56) 05/21/16 09:38 Alkaline Phosphatase 52 U/L (38-133) 05/21/16 09:38 Lactate Dehydrogenase 333 U/L (333-699) 05/20/16 16:10 Total Creatine Kinase 64 U/L (35-230) 05/20/16 16:10 Troponin I < 0.01 ng/mL 05/20/16 16:10 NT-Pro-B Natriuret Pep 72.0 pg/mL (0-450) 05/20/16 16:10 Total Protein 6.8 g/dL (5.8-8.3) 05/21/16 09:38 Albumin 3.4 g/dL (3.0-4.8) 05/21/16 09:38 Globulin 3.3 gm/dL 05/21/16 09:38 Albumin/Globulin Ratio 1.0 (1.1-1.8) L 05/21/16 09:38 Lipase 73 U/L (23-300) 05/20/16 16:10 Urine Color Yellow (YELLOW) 05/20/16 15:13 Urine Appearance Clear (CLEAR) 05/20/16 15:13 Urine pH 6.5 (4.7-8.0) 05/20/16 15:13 Ur Specific [place] 1.025 (1.005-1.035) 05/20/16 15:13 Urine Protein Negative mg/dL (<30 mg/dL) 05/20/16 15:13 Urine Glucose (UA) Negative mg/dL (NEGATIVE) 05/20/16 15:13 Urine Ketones Negative mg/dL (NEGATIVE) 05/20/16 15:13 Urine Blood Negative (NEGATIVE) 05/20/16 15:13 Urine Nitrate Negative (NEGATIVE) 05/20/16 15:13 Urine Bilirubin Negative (NEGATIVE) 05/20/16 15:13 Urine Urobilinogen 0.2 E.U./dL (<1 E.U./dL) 05/20/16 15:13 Ur Leukocyte Esterase Negative Jaime/uL (NEGATIVE) 05/20/16 15:13 Urine HCG, Qual Negative (NEGATIVE) 05/20/16 15:13 - Hospital Course Hospital Course: Patient is a 41yo female with past medical history of lung nodules that presented c/o right-sided upper back pain for 1 week prior to presentation. She reported that the pain localized to her right-side and is exacerbated by laying on her right-side. The pain was constant and happened before 4 years ago. She reported that she had abnormal lung nodules seen on CT previously which were biopsied on three separate occasions. She reported that she was treated with antibiotics and antifungals. She reported that on her previous similar episode the pain only resolved after she was given prednisone and states that she has not had a flare up until now. She reported calling her PMD, Dr. Johnson who gave her Zithromax and she completed 3 out of the 5 days. She denied having CP, cough, fever, chills, sick contacts, SOB, n/v/d. The follow workup/results were obtained during the patient's hospital course: 1. Right-sided pleuritic pain -CT Chest reviewed; revealed focal mass-like consolidation on R lung base with multiple nodular densities in bilateral lung churchill (largest in LL lobe) -Gallbladder U/S- echogenic liver- could correlate with fatty liver disease -Patient started on levaquin and prednisone 20mg PO qd -Lung biopsies from 2012 reviewed; no evidence of malignancy, TB, PCP or fungal infections; showed necrotic granulomatous tissue -Pulmonology consulted - Dr. Pryor 2. Anemia -Etiology of anemia worked up: Iron, Ferritin, TIBC, %sat, b12, folate -Likely secondary to iron deficiency anemia; patient was instructed to follow up with her primary care doctor for further evaluation and treatment of her anemia. She communicated understanding and stated she would follow up. She was additionally given a referral to hematology. 3. Prophylaxis -protonix/SCD's Disposition: The patient was evaluated by pulmonology and had additional blood work sent for evaluation. She was instructed to follow up with Dr. Armijo (pulmonology), Dr. Taylor (PMD), Dr. Anders (Rheumatology) and Dr. Escobar (Hematology) as an outpatient within 1-2 weeks of discharge. Patient was cleared for discharge, communicated understanding of discharge instructions and was agreeable to discharge with follow up. She was prescribed levofloxacin 750mg PO qd for 7 days and instructed to fill her prescription and take as directed. She agreed to follow up as an outpatient. Discharge Exam - Head Exam Head Exam: ATRAUMATIC, NORMAL INSPECTION, NORMOCEPHALIC - Eye Exam Eye Exam: EOMI, PERRL - ENT Exam ENT Exam: Mucous Membranes Moist - Neck Exam Neck exam: Normal Inspection - Respiratory Exam Respiratory Exam: Clear to PA & Lateral, NORMAL BREATHING PATTERN, UNREMARKABLE. absent: Accessory Muscle Use, Decreased Breath Sounds, Rales, Rhonchi, Wheezes, Respiratory Distress - Cardiovascular Exam Cardiovascular Exam: RRR, +S1, +S2. absent: Tachycardia, Diastolic murmur, Gallop, JVD, Rubs, Systolic Murmur - GI/Abdominal Exam GI & Abdominal Exam: Normal Bowel Sounds, Soft, Unremarkable. absent: Distended , Firm, Guarding, Mass, Rebound, Rigid, Tenderness - Extremities Exam Extremities exam: normal inspection - Neurological Exam Neurological exam: Alert, CN II-XII Intact, Normal Gait, Oriented x3 - Psychiatric Exam Psychiatric exam: Normal Affect, Normal Mood - Skin Skin Exam: Dry, Intact, Normal Color, Warm Discharge Plan - Discharge Medications Prescriptions: Levofloxacin [Levaquin] 750 mg PO DAILY #7 tablet - Follow Up Plan Condition: STABLE Disposition: HOME/ ROUTINE Additional Instructions: 1. Follow up with your primary doctor, Dr. Taylor within 1-2 weeks. 2. Follow up with your mortgage or loan underwriter, Dr. Pryor within 1-2 weeks. 3. Follow up with your control room tender, Dr. Anders within 1-2 weeks. 4. Follow up with your retort condenser attendant, Dr. Escobar within 1-2 weeks. 5. Fill any medications prescribed to you and take as directed. 6. Return to the emergency room should your condition worsen or change in severity/quality. Referrals: Salvador Taylor MD [Staff Provider] - Everardo Armijo MD [Staff Provider] - Brenda Escobar MD [Staff Provider] - Rito Anders MD [Medical Doctor] - <Salvador Taylor - Last Filed: 06/10/16 09:19> Provider - Provider Date of Admission: 05/20/16 19:14 Attending physician: Rei Rivera MD Primary care physician: Shelby Johnson MD Hospital Course - Lab Results Lab Results: Most Recent Lab Values WBC 8.6 10^3/ul (4.5-11.0) 05/21/16 09:38 RBC 3.91 10^6/uL (3.5-6.1) 05/21/16 09:38 Hgb 9.4 gm/dL (12.0-16.0) L 05/21/16 09:38 Hct 29.8 % (36.0-48.0) L 05/21/16 09:38 MCV 76.2 fL (80.0-105.0) L 05/21/16 09:38 MCH 24.0 pg (25.0-35.0) L 05/21/16 09:38 MCHC 31.5 g/dl (31.0-37.0) 05/21/16 09:38 RDW 14.7 % (11.5-14.5) H 05/21/16 09:38 Plt Count 455 10^3/uL (120.0-450.0) H 05/21/16 09:38 MPV 8.7 fl (7.0-11.0) 05/21/16 09:38 Gran % 87.1 % (50.0-68.0) H 05/21/16 09:38 Lymph % (Auto) 11.5 % (22.0-35.0) L 05/21/16 09:38 [place]yman % (Auto) 1.4 % (1.0-6.0) 05/21/16 09:38 Eos % (Auto) 0.0 % (1.5-5.0) L 05/21/16 09:38 Baso % (Auto) 0.0 % (0.0-3.0) 05/21/16 09:38 Gran # 7.50 (1.4-6.5) H 05/21/16 09:38 Lymph # 1.0 (1.2-3.4) L 05/21/16 09:38 Lyman # 0.1 (0.1-0.6) 05/21/16 09:38 Eos # 0.0 (0.0-0.7) 05/21/16 09:38 Baso # 0.00 K/mm3 (0.0-2.0) 05/21/16 09:38 ESR 26 mm/hr (0.0-20.0) H 05/21/16 10:00 Sodium 142 mmol/L (132-148) 05/21/16 09:38 Potassium 3.7 mmol/L (3.6-5.0) 05/21/16 09:38 Chloride 107 mmol/L (98-107) 05/21/16 09:38 Carbon Dioxide 25 mmol/L (21-33) 05/21/16 09:38 Anion Gap 14 (10-20) 05/21/16 09:38 BUN 9 mg/dL (7-21) 05/21/16 09:38 Creatinine 0.7 mg/dL (0.5-1.4) 05/21/16 09:38 Est GFR ( Amer) > 60 05/21/16 09:38 Est GFR (Non-Af Amer) > 60 05/21/16 09:38 Random Glucose 135 mg/dL (70-110) H 05/21/16 09:38 Calcium 8.8 mg/dL (8.4-10.5) 05/21/16 09:38 Iron 12 ug/dL (45-180) L 05/20/16 16:10 TIBC 347 ug/dL (265-497) 05/20/16 16:10 % Saturation 4 % (20-55) L 05/20/16 16:10 Ferritin 6.3 ng/mL 05/20/16 16:10 Total Bilirubin 0.2 mg/dL (0.2-1.3) 05/21/16 09:38 AST 20 U/L (15-39) 05/21/16 09:38 ALT 28 U/L (7-56) 05/21/16 09:38 Alkaline Phosphatase 52 U/L (38-133) 05/21/16 09:38 Lactate Dehydrogenase 333 U/L (333-699) 05/20/16 16:10 Total Creatine Kinase 64 U/L (35-230) 05/20/16 16:10 Troponin I < 0.01 ng/mL 05/20/16 16:10 C-Reactive Prot, Quant 1.5 mg/dL (<0.8) H 05/21/16 13:00 C-React Prot High Sens 7.82 mg/L (1.00-3.00) H 05/21/16 09:38 NT-Pro-B Natriuret Pep 72.0 pg/mL (0-450) 05/20/16 16:10 Total Protein 6.8 g/dL (5.8-8.3) 05/21/16 09:38 Albumin 3.4 g/dL (3.0-4.8) 05/21/16 09:38 Globulin 3.3 gm/dL 05/21/16 09:38 Albumin/Globulin Ratio 1.0 (1.1-1.8) L 05/21/16 09:38 Lipase 73 U/L (23-300) 05/20/16 16:10 Angiotensin Convert Enz 42 U/L (9-67) 05/21/16 13:00 PTH Intact Whole Molec 39 pg/mL (14-64) 05/21/16 09:38 Urine Color Yellow (YELLOW) 05/20/16 15:13 Urine Appearance Clear (CLEAR) 05/20/16 15:13 Urine pH 6.5 (4.7-8.0) 05/20/16 15:13 Ur Specific Hurricane 1.025 (1.005-1.035) 05/20/16 15:13 Urine Protein Negative mg/dL (<30 mg/dL) 05/20/16 15:13 Urine Glucose (UA) Negative mg/dL (NEGATIVE) 05/20/16 15:13 Urine Ketones Negative mg/dL (NEGATIVE) 05/20/16 15:13 Urine Blood Negative (NEGATIVE) 05/20/16 15:13 Urine Nitrate Negative (NEGATIVE) 05/20/16 15:13 Urine Bilirubin Negative (NEGATIVE) 05/20/16 15:13 Urine Urobilinogen 0.2 E.U./dL (<1 E.U./dL) 05/20/16 15:13 Ur Leukocyte Esterase Negative Jaime/uL (NEGATIVE) 05/20/16 15:13 Urine HCG, Qual Negative (NEGATIVE) 05/20/16 15:13 Rheumatoid Factor 9 IU/mL (<14) 05/21/16 13:00 ALEJANDRO Screen Negative (Negative) 05/21/16 13:00 ALEJANDRO Titer TEST NOT PERFORMED 05/21/16 13:00 ALEJANDRO Titer 2 TEST NOT PERFORMED 05/21/16 13:00 ALEJANDRO Pattern TEST NOT PERFORMED 05/21/16 13:00 ALEJANDRO Pattern 2 TEST NOT PERFORMED 05/21/16 13:00 Complement C3 123.0 mg/dL (88.0-165.0) 05/21/16 13:00 Complement C4 39.2 mg/dL (14.0-44.0) 05/21/16 13:00 Attending/Attestation - Attestation I have personally seen and examined this patient.: Yes I have fully participated in the care of the patient.: Yes I have reviewed all pertinent clinical information, including history, physical exam and plan: Yes Notes (Text): 06/10/16 09:19 Medical record note made by the resident after discussion with my direction and input after the patient was personally seen and examined by me. I have reviewed the chart and agree that the record accurately reflects by personal performance of the history, physical exam, data review, and medical decision-making, in the course for the patient. I have also personally directed the plan of care.
[2016-05-23 01:26] LABS: C-REACTIVE PROTEIN 1.5 mg/dL (<0.8)
== END 2016-05-21 14:27 | disposition home or self-care (01) ==
LOC: ED 14:37 → ERH 19:14 → 3RSO 20:51
PROVIDERS: ADMIT Internal Medicine; ATTEND Internal Medicine
DX: R07.81 Pleurodynia (principal); D64.9 Anemia, unspecified; R91.8 Other nonspecific abnormal finding of lung field; M54.9 Dorsalgia, unspecified
CPT/HCPCS: 36415; 71250; 76705; 80053; 81003; 82164; 82550; 82728; 83540; 83550; 83615; 83690; 83880; 83970; 84484; 84703; 85025; 85651; 86039; 86140; 86160; 86431; 93005; 96365; 96367; 96375; 99283; G0378; J0456; J0696; J1885; J2930; J7040

== ENCOUNTER 2018-02-15 10:07 | Emergency (ER) | payer BC, OTHER ==
[2018-02-15 10:08] VITALS: BMI 27.1
[2018-02-15] MEDS ORDERED: Ciprofloxacin/Dexamethasone OTIC SUSP AU STA (10:33)
--- NOTE | 2018-02-15 10:41 | ED PDOC ---
Arrival/HPI - General Chief Complaint: ENT Problem Time Seen by Provider: 02/15/18 10:09 Historian: Patient - History of Present Illness Narrative History of Present Illness (Text): 02/15/18 10:37 43yo female with pmhx of Sarcodosis who present with complaint of b/l ear pain x 2weeks. States she have appointment with her PMD on Monday for the pain, but couldn't wait anymore. She did not take any medication for pain. Denies fever, hearing loss, drainage, any other complaint. Past Medical History - Provider Review Nursing Documentation Reviewed: Yes - Past History Past History: No Previous - Infectious Disease Hx of Infectious Diseases: None - Tetanus Immunization Tetanus Immunization: Up to Date - Reproductive Menopause: No - Past Medical History Past Medical History: No Previous - Cardiac Hx Cardiac Disorders: No Hx Pacemaker: No - Pulmonary Hx Pneumonia: Yes Other/Comment: sarcodosis - Neurological Hx Neurological Disorder: No Hx Paralysis: No - HEENT Hx HEENT Disorder: No - Renal Hx Renal Disorder: No - Endocrine/Metabolic Hx Endocrine Disorders: No - Hematological/Oncological Hx Blood Disorders: No Hx Blood Transfusions: No - Musculoskeletal/Rheumatological Hx Musculoskeletal Disorders: No - Psychiatric Hx Depression: No Hx Emotional Abuse: No Hx Physical Abuse: No Hx Substance Use: No - Past Surgical History Past Surgical History: No Previous - Surgical History Hx Section: Yes - Anesthesia Hx Anesthesia: Yes Hx Anesthesia Reactions: No Hx Malignant Hyperthermia: No - Suicidal Assessment Feels Threatened In Home Enviroment: No Family/Social History - Physician Review Nursing Documentation Reviewed: Yes Family/Social History: Unknown Family HX Smoking Status: Never Smoked Hx Alcohol Use: No Hx Substance Use: No Hx Substance Use Treatment: No Allergies/Home Meds Allergies/Adverse Reactions: Allergies iodine Adverse Reaction (Uncoded 02/15/18 10:20) RASH shellfish Adverse Reaction (Uncoded 02/15/18 10:20) RASH Home Medications: Home Meds Medication Instructions Recorded Confirmed Folic Acid 1 mg PO DAILY 02/15/18 02/15/18 Methotrexate Sodium/Pf mg QWK 02/15/18 [Methotrexate 25 mg/ml Vial] Review of Systems - Physician Review All systems were reviewed & negative as marked: Yes - Review of Systems Constitutional: Normal Eyes: Normal ENT: Other (B/L ear pain) Respiratory: Normal Cardiovascular: Normal Gastrointestinal: Normal Genitourinary Female: Normal Musculoskeletal: Normal Skin: Normal Neurological: Normal Endocrine: Normal Hemo/Lymphatic: Normal Psychiatric: Normal Physical Exam Vital Signs Reviewed: Yes Vital Signs Temp Pulse Resp BP Pulse Ox 02/15/18 10:15 99.6 F 84 16 103/73 98 Temperature: Afebrile Blood Pressure: Normal Pulse: Regular Respiratory Rate: Normal Appearance: Positive for: Well-Appearing, Non-Toxic, Comfortable Pain Distress: None Mental Status: Positive for: Alert and Oriented X 3 - Systems Exam Head: Present: Atraumatic, Normocephalic Pupils: Present: PERRL Extroacular Muscles: Present: EOMI Conjunctiva: Present: Normal Ears: Present: Erythema (Right TM and congestion), Other (Tenderness on palpation of anterior and posterior right ear and pain with manipulation of right pinna) Mouth: Present: Moist Mucous Membranes Pharnyx: Present: Soft Palate/Uvular Edema Neck: Present: Normal Range of Motion Respiratory/Chest: Present: Clear to Auscultation, Good Air Exchange. No: Respiratory Distress, Accessory Muscle Use Cardiovascular: Present: Regular Rate and Rhythm, Normal S1, S2. No: Murmurs Abdomen: No: Tenderness, Distention, Peritoneal Signs Back: Present: Normal Inspection Upper Extremity: Present: Normal Inspection. No: Cyanosis, Edema Lower Extremity: Present: Normal Inspection. No: Edema Neurological: Present: GCS=15, CN II-XII Intact, Speech Normal Skin: Present: Warm, Dry, Normal Color. No: Rashes Psychiatric: Present: Alert, Oriented x 3, Normal Insight, Normal Concentration Medical Decision Making - Medication Orders Current Medication Orders: Ciprofloxacin/Dexamethasone (Ciprodex Otic) 2 drop AU ONCE STA Stop: 02/15/18 10:34 Clindamycin HCl (Cleocin) 300 mg PO STAT STA; Protocol Stop: 02/15/18 10:35 Disposition/Present on Arrival - Present on Arrival Any Indicators Present on Arrival: No History of DVT/PE: No History of Uncontrolled Diabetes: No Urinary Catheter: No History of Decub. Ulcer: No History Surgical Site Infection Following: None - Disposition Have Diagnosis and Disposition been Completed?: Yes Diagnosis: Acute otitis media, Otitis externa Disposition: HOME/ ROUTINE Disposition Time: 10:55 Patient Plan: Discharge Condition: STABLE Discharge Instructions (ExitCare): Ear Infections (Otitis Media) Additional Instructions: Follow up with your Doctor/ENT Return to ED for any new or worsening symptoms Prescriptions: Clindamycin [Cleocin] 300 mg PO TID #21 cap traMADol [Ultram] 50 mg PO Q6 #6 tab Referrals: Simba Charles DO [Staff Provider] - Follow up with primary
[2018-02-15 11:21] VITALS: BP 103/72; PULSE 81; RESP 18; TEMP 99.5; O2SAT 100
== END 2018-02-15 11:20 | disposition home or self-care (01) ==
LOC: ED 10:07
DX: H66.90 Otitis media, unspecified, unspecified ear (principal)